=== PATIENT | male | born 1970 | race Caucasian/White ===

== ENCOUNTER 2018-01-24 09:31 | Observation (INO) | payer BC ==
--- NOTE | 2018-01-24 10:05 | ED ---
General Adult HPI - General Chief complaint: Chest Pain Stated complaint: chest pain Time Seen by Provider: 01/24/18 09:39 Source: patient, RN notes reviewed, old records reviewed Mode of arrival: ambulatory Limitations: no limitations - History of Present Illness Initial comments: 47-year-old male presenting with left-sided chest pain. Pain began approximately 5 hours prior to arrival. His been left-sided, dull pressure sensation. Patient did report some pain in his left arm. Patient has no known history of CAD. He does have history of hypertension, he is a former smoker. States that with the pain came some nausea and diaphoresis. Pain is resolved at the time my evaluation. No abdominal pain. No difficulty breathing. No cough or fever. Prior to these symptoms patient was well. - Related Data Home Medications Medication Instructions Recorded Confirmed Aspirin 650 mg PO ONCE PRN 01/24/18 01/24/18 Aspirin EC [Ecotrin Low Dose] 81 mg PO DAILY 01/24/18 01/24/18 Lisinopril 30 mg PO DAILY 01/24/18 01/24/18 Metoprolol Tartrate [Lopressor] 50 mg PO BID 01/24/18 01/24/18 Allergies Allergy/AdvReac Type Severity Reaction Status Date / Time No Known Allergies Allergy Verified 01/24/18 11:21 Review of Systems ROS Statement: Those systems with pertinent positive or pertinent negative responses have been documented in the HPI. ROS Other: All systems not noted in ROS Statement are negative. Past Medical History Past Medical History: Hypertension History of Any Multi-Drug Resistant Organisms: None Reported Past Surgical History: No Surgical Hx Reported Smoking Status: Former smoker Past Alcohol Use History: None Reported Past Drug Use History: None Reported General Exam Limitations: no limitations General appearance: alert, in no apparent distress Head exam: Present: atraumatic, normocephalic Eye exam: Present: normal appearance, PERRL, EOMI ENT exam: Present: normal exam Neck exam: Present: normal inspection. Absent: tenderness, meningismus Respiratory exam: Present: normal lung sounds bilaterally. Absent: respiratory distress, wheezes Cardiovascular Exam: Present: regular rate, normal rhythm, normal heart sounds. Absent: rubs GI/Abdominal exam: Present: soft. Absent: distended, tenderness, guarding Extremities exam: Present: normal inspection, normal capillary refill. Absent: pedal edema, calf tenderness Neurological exam: Present: alert, oriented X3, CN II-XII intact. Absent: motor sensory deficit Psychiatric exam: Present: normal affect, normal mood Skin exam: Present: warm, dry, intact. Absent: cyanosis, diaphoretic Course Vital Signs 01/24/18 09:34 Temperature 97.8 F Pulse Rate 86 Respiratory 18 Rate Blood Pressure 155/77 O2 Sat by Pulse 96 Oximetry EKG Findings - EKG Comments: EKG Findings:: Normal sinus rhythm, ventricular rate of 80, WI interval 160, QRS duration 106, QTC 440, there is T-wave inversion in lead 3, no ST segment elevation or depression Medical Decision Making - Medical Decision Making 47-year-old male presenting with chief complaint of chest pain. Pain was somewhat atypical, however he did have some nausea and diaphoresis. Patient has significant risk factors including previous tobacco use and hypertension. Laboratory studies reveal normal CBC, normal CMP. Initial troponin is negative. Chest x-ray negative for acute disease. Patient will be placed in observation for serial cardiac enzymes and cardiology consultation. - Lab Data Result diagrams: 01/24/18 08:42 01/24/18 08:42 Lab Results 01/24/18 01/24/18 01/24/18 Range/Units 08:42 08:42 08:42 WBC 6.2 (3.8-10.6) k/uL RBC 5.28 (4.30-5.90) m/uL Hgb 15.1 (13.0-17.5) gm/dL Hct 44.6 (39.0-53.0) % MCV 84.4 (80.0-100.0) fL MCH 28.5 (25.0-35.0) pg MCHC 33.8 (31.0-37.0) g/dL RDW 12.8 (11.5-15.5) % Plt Count 223 (150-450) k/uL Neutrophils % 59 % Lymphocytes % 32 % Monocytes % 5 % Eosinophils % 1 % Basophils % 1 % Neutrophils # 3.7 (1.3-7.7) k/uL Lymphocytes # 2.0 (1.0-4.8) k/uL Monocytes # 0.3 (0-1.0) k/uL Eosinophils # 0.1 (0-0.7) k/uL Basophils # 0.0 (0-0.2) k/uL PT (9.0-12.0) sec INR (<1.2) APTT (22.0-30.0) sec Sodium 143 (137-145) mmol/L Potassium 4.3 (3.5-5.1) mmol/L Chloride 106 (98-107) mmol/L Carbon Dioxide 23 (22-30) mmol/L Anion Gap 14 mmol/L BUN 20 (9-20) mg/dL Creatinine 0.87 (0.66-1.25) mg/dL Est GFR (CKD-EPI)AfAm >90 (>60 ml/min/1.73 sqM) Est GFR (CKD-EPI)NonAf >90 (>60 ml/min/1.73 sqM) Glucose 99 (74-99) mg/dL Calcium 9.6 (8.4-10.2) mg/dL Magnesium 2.2 (1.6-2.3) mg/dL Total Bilirubin 0.5 (0.2-1.3) mg/dL AST 25 (17-59) U/L ALT 33 (21-72) U/L Alkaline Phosphatase 51 (38-126) U/L Total Creatine Kinase 152 (55-170) U/L CK-MB (CK-2) 1.1 (0.0-2.4) ng/mL CK-MB (CK-2) Rel Index 0.7 Troponin I <0.012 (0.000-0.034) ng/mL NT-Pro-B Natriuret Pep pg/mL Total Protein 7.2 (6.3-8.2) g/dL Albumin 4.5 (3.5-5.0) g/dL Lipase 115 (23-300) U/L 01/24/18 01/24/18 Range/Units 08:42 08:42 WBC (3.8-10.6) k/uL RBC (4.30-5.90) m/uL Hgb (13.0-17.5) gm/dL Hct (39.0-53.0) % MCV (80.0-100.0) fL MCH (25.0-35.0) pg MCHC (31.0-37.0) g/dL RDW (11.5-15.5) % Plt Count (150-450) k/uL Neutrophils % % Lymphocytes % % Monocytes % % Eosinophils % % Basophils % % Neutrophils # (1.3-7.7) k/uL Lymphocytes # (1.0-4.8) k/uL Monocytes # (0-1.0) k/uL Eosinophils # (0-0.7) k/uL Basophils # (0-0.2) k/uL PT 9.9 (9.0-12.0) sec INR 1.0 (<1.2) APTT 23.6 (22.0-30.0) sec Sodium (137-145) mmol/L Potassium (3.5-5.1) mmol/L Chloride (98-107) mmol/L Carbon Dioxide (22-30) mmol/L Anion Gap mmol/L BUN (9-20) mg/dL Creatinine (0.66-1.25) mg/dL Est GFR (CKD-EPI)AfAm (>60 ml/min/1.73 sqM) Est GFR (CKD-EPI)NonAf (>60 ml/min/1.73 sqM) Glucose (74-99) mg/dL Calcium (8.4-10.2) mg/dL Magnesium (1.6-2.3) mg/dL Total Bilirubin (0.2-1.3) mg/dL AST (17-59) U/L ALT (21-72) U/L Alkaline Phosphatase (38-126) U/L Total Creatine Kinase (55-170) U/L CK-MB (CK-2) (0.0-2.4) ng/mL CK-MB (CK-2) Rel Index Troponin I (0.000-0.034) ng/mL NT-Pro-B Natriuret Pep 179 pg/mL Total Protein (6.3-8.2) g/dL Albumin (3.5-5.0) g/dL Lipase (23-300) U/L Disposition Clinical Impression: Chest pain Disposition: ADMITTED IP TO THIS [facility] Condition: Stable Referrals: Alma Lynn MD [Primary Care Provider] - 1-2 days Decision to Admit Reason: Admit from EC Decision Date: 01/24/18 Decision Time: 12:53
[2018-01-24 10:12] LABS: Basophils % (A) 1 %; Eosinophils # (A) 0.1 k/uL (0-0.7); Eosinophils % (A) 1 %; HCT 44.6 % (39.0-53.0); HGB 15.1 gm/dL (13.0-17.5); Lymphocytes % (A) 32 %; MCH 28.5 pg (25.0-35.0); MCHC 33.8 g/dL (31.0-37.0); MCV 84.4 fL (80.0-100.0); Mean Platelet Volume 7.3; Monocytes # (A) 0.3 k/uL (0-1.0); Monocytes % (A) 5 %; Neutrophils # (A) 3.7 k/uL (1.3-7.7); Neutrophils % (A) 59 %; Platelet Count 223 k/uL (150-450); RBC 5.28 m/uL (4.30-5.90); RDW 12.8 % (11.5-15.5); WBC 6.2 k/uL (3.8-10.6)
--- NOTE | 2018-01-24 10:17 | XR ---
EXAMINATION TYPE: XR chest 2V DATE OF EXAM: 01/24/2018 HISTORY: Chest Pain. REFERENCE: NONE. FINDINGS: The lungs are clear. Pleural space are clear. The heart is not enlarged. IMPRESSION: NO ACUTE INTRATHORACIC ABNORMALITY.
[2018-01-24 10:21] LABS: Partial Thromboplastin Time 23.6 sec (22.0-30.0); Prothrombin Time 9.9 sec (9.0-12.0)
[2018-01-24 10:41] LABS: ALT 33 U/L (21-72); AST 25 U/L (17-59); Albumin 4.5 g/dL (3.5-5.0); Alkaline Phosphatase 51 U/L (38-126); Anion Gap 14 mmol/L; Blood Urea Nitrogen 20 mg/dL (9-20); Calcium 9.6 mg/dL (8.4-10.2); Carbon Dioxide 23 mmol/L (22-30); Chloride 106 mmol/L (98-107); Glucose 99 mg/dL (74-99); Lipase 115 U/L (23-300); Magnesium 2.2 mg/dL (1.6-2.3); Potassium 4.3 mmol/L (3.5-5.1); Sodium 143 mmol/L (137-145); Total Bilirubin 0.5 mg/dL (0.2-1.3); Total Protein 7.2 g/dL (6.3-8.2)
[2018-01-24 10:53] LABS: Creatine Kinase 152 U/L (55-170)
[2018-01-24 11:06] LABS: Creatine Kinase MB 1.1 ng/mL (0.0-2.4); Troponin I <0.012 ng/mL (0.000-0.034)
[2018-01-24] MEDS ORDERED: NALOXONE 0.4 MG/ML 1 ML VIAL IV PRN (12:41)
[2018-01-24] MEDS ORDERED: ONDANSETRON 4 MG/2 ML VIAL IVP PRN (12:41)
[2018-01-24 14:59] VITALS: BMI 34.8
--- NOTE | 2018-01-24 15:47 | P.HPIM ---
History of Present Illness 47-year-old pleasant gentleman with known history of previous coronary artery disease came in with complaints of very dull chest pain nonexertional changes with the chest wall movement. Denied any fever chills nonpleuritic in nature not associated with food not associated with lightheadedness shortness of breath or diaphoresis denied any nausea vomiting. Denied any cough denied any flulike symptoms fever chills low-grade chest pain. EKG showed some nonspecific Q waves in anterior leads, no prior EKG available to compare with. Patient follows up with cardiology as an outpatient had a stress test couple years ago which was within normal limits and a nuclear perfusion imaging 4 years ago which was normal as well. Patient's risk factors include hypertension , former smoker. Denied any premature carotid artery disease but mother had myocardial infarction the past Review of Systems REVIEW OF SYSTEMS: CONSTITUTIONAL: No fever, no malaise, no fatigue. HEENT: No recent visual problems or hearing problems. Denied any sore throat. CARDIOVASCULAR: No orthopnea, PND, no palpitations, no syncope. PULMONARY: No shortness of breath, no cough, no hemoptysis. GASTROINTESTINAL: No diarrhea, no nausea, no vomiting, no abdominal pain. Normoactive bowel sounds. NEUROLOGICAL: No headaches, no weakness, no numbness. HEMATOLOGICAL: Denies any bleeding or petechiae. GENITOURINARY: Denies any burning micturition, frequency, or urgency. MUSCULOSKELETAL/RHEUMATOLOGICAL: Denies any joint pain, swelling, or any muscle pain. ENDOCRINE: Denies any polyuria or polydipsia. The rest of the 14-point review of systems is negative. Past Medical History Past Medical History: Hypertension History of Any Multi-Drug Resistant Organisms: None Reported Past Surgical History: No Surgical Hx Reported Past Anesthesia/Blood Transfusion Reactions: No Reported Reaction Past Psychological History: No Psychological Hx Reported Smoking Status: Former smoker Past Alcohol Use History: None Reported Past Drug Use History: None Reported Medications and Allergies Home Medications Medication Instructions Recorded Confirmed Type Aspirin 650 mg PO ONCE PRN 01/24/18 01/24/18 History Aspirin EC [Ecotrin Low Dose] 81 mg PO HS 01/24/18 01/24/18 History Lisinopril 30 mg PO DAILY 01/24/18 01/24/18 History Metoprolol Tartrate [Lopressor] 50 mg PO BID 01/24/18 01/24/18 History Allergies Allergy/AdvReac Type Severity Reaction Status Date / Time No Known Allergies Allergy Verified 01/24/18 11:21 Physical Exam Vitals: Vital Signs Temp Pulse Pulse Resp BP BP Pulse Ox 01/24/18 13:38 98.2 F 68 16 121/75 97 01/24/18 13:30 98 F 70 18 135/83 98 01/24/18 09:34 97.8 F 86 18 155/77 96 Intake and Output 01/24/18 01/24/18 01/24/18 06:59 14:59 22:59 Other: Voiding Method Toilet Weight 113.398 kg PHYSICAL EXAMINATION: GENERAL: The patient is alert and oriented x3, not in any acute distress. Well developed, well nourished. HEENT: Pupils are round and equally reacting to light. EOMI. No scleral icterus. No conjunctival pallor. Normocephalic, atraumatic. No pharyngeal erythema. No thyromegaly. CARDIOVASCULAR: S1 and S2 present. No murmurs, rubs, or gallops. PULMONARY: Chest is clear to auscultation, no wheezing or crackles. ABDOMEN: Soft, nontender, nondistended, normoactive bowel sounds. No palpable organomegaly. MUSCULOSKELETAL: No joint swelling or deformity. EXTREMITIES: No cyanosis, clubbing, or pedal edema. NEUROLOGICAL: Gross neurological examination did not reveal any focal deficits. SKIN: No rashes. Results CBC & Chem 7: 01/24/18 08:42 01/24/18 08:42 Thrombosis Risk Factor Assmnt - Choose All That Apply Each Factor Represents 1 point: Age 41-60 years, Obesity (BMI >25) Thrombosis Risk Factor Assessment Total Risk Factor Score: 2 Thrombosis Risk Factor Assessment Level: Low Risk Assessment and Plan Plan: -Chest pain: We will rule out acute coronary syndromes it's 2 more sets of troponins appears to be noncardiac in nature musculoskeletal in nature patient may need an outpatient stress test. -Hypertension : Well-controlled blood pressure -remote history of nicotine use
[2018-01-24 16:16] LABS: Creatine Kinase 128 U/L (55-170)
[2018-01-24 16:30] LABS: Creatine Kinase MB 0.8 ng/mL (0.0-2.4); Troponin I <0.012 ng/mL (0.000-0.034)
[2018-01-24] MEDS: METOPROLOL TARTRATE 50 MG TAB PO SCH (19:44)
[2018-01-24] MEDS ORDERED: ASPIRIN 81 MG PO SCH (21:00)
[2018-01-24 22:51] LABS: Creatine Kinase 105 U/L (55-170)
[2018-01-24 23:03] LABS: Creatine Kinase MB 0.8 ng/mL (0.0-2.4); Troponin I <0.012 ng/mL (0.000-0.034)
[2018-01-25] MEDS ORDERED: LISINOPRIL 10 MG TAB PO SCH (09:00)
--- NOTE | 2018-01-25 10:58 | P.CRDCN ---
History of Present Illness Consult date: 01/25/18 Chief complaint: Chest pain History of present illness: This is a pleasant 47-year-old gentleman who sees Dr. VIRGINIA Yu in the office as an outpatient with a past medical history significant for hypertension and significant family history of coronary artery disease presented to the hospital complaining of chest discomfort. He describes atypical chest discomfort. It seems to be musculoskeletal/ pleuritic. It's sharp kind of discomfort in the mid of the chest without any radiation and without any associated symptoms. He stated that the discomfort is precipitated by turning the chest to the right. It seems to be also reproducible. The cardiac workup including EKG and enzymes came in to be unremarkable. I did recommend obtaining a stress test either as an inpatient or as an outpatient and the patient is going to be discharged home and follow-up with Dr. VIRGINIA Yu in the office to have a stress test done as an outpatient. Past Medical History Past Medical History: Hypertension History of Any Multi-Drug Resistant Organisms: None Reported Past Surgical History: No Surgical Hx Reported Past Anesthesia/Blood Transfusion Reactions: No Reported Reaction Past Psychological History: No Psychological Hx Reported Smoking Status: Former smoker Past Alcohol Use History: None Reported Past Drug Use History: None Reported Medications and Allergies Home Medications Medication Instructions Recorded Confirmed Type Aspirin 650 mg PO ONCE PRN 01/24/18 01/24/18 History Aspirin EC [Ecotrin Low Dose] 81 mg PO HS 01/24/18 01/24/18 History Lisinopril 30 mg PO DAILY 01/24/18 01/24/18 History Metoprolol Tartrate [Lopressor] 50 mg PO BID 01/24/18 01/24/18 History Allergies Allergy/AdvReac Type Severity Reaction Status Date / Time No Known Allergies Allergy Verified 01/24/18 11:21 Physical Exam Vitals: Vital Signs Temp Pulse Pulse Resp BP BP Pulse Ox 01/25/18 08:00 98.0 F 71 16 121/73 98 01/25/18 07:42 16 01/25/18 07:36 96 01/25/18 03:58 97.9 F 72 16 119/73 96 01/25/18 03:16 16 01/25/18 00:08 98 F 75 16 103/63 97 01/24/18 23:18 16 01/24/18 20:20 98 F 80 16 123/66 96 01/24/18 19:30 16 01/24/18 16:00 98.8 F 74 16 133/66 96 01/24/18 13:38 98.2 F 68 16 121/75 97 01/24/18 13:30 98 F 70 18 135/83 98 Intake and Output 01/24/18 01/25/18 01/25/18 22:59 06:59 14:59 Other: Voiding Method Toilet Toilet Toilet - Constitutional General appearance: no acute distress - Respiratory Respiratory: bilateral: CTA - Cardiovascular Rhythm: regular Heart sounds: normal: S1, S2 Results 01/24/18 08:42 01/24/18 08:42 Cardiac Enzymes 01/24/18 01/24/18 01/24/18 Range/Units 08:42 15:35 21:50 CK-MB (CK-2) 1.1 0.8 0.8 (0.0-2.4) ng/mL Troponin I <0.012 <0.012 <0.012 (0.000-0.034) ng/mL Current Medications Generic Name Dose Route Start Last Admin Trade Name Freq PRN Reason Stop Dose Admin Aspirin 81 mg 01/24/18 21:00 01/24/18 19:44 Aspirin PO 81 mg HS TERESE Administration Lisinopril 30 mg 01/25/18 09:00 Zestril PO DAILY TERESE Metoprolol Tartrate 50 mg 01/24/18 21:00 01/24/18 19:44 Lopressor PO 50 mg BID TERESE Administration Naloxone HCl 0.2 mg 01/24/18 12:41 Narcan IV Q2M PRN Opioid Reversal Ondansetron HCl 4 mg 01/24/18 12:41 Zofran IVP Q8HR PRN Nausea And Vomiting Intake and Output 01/24/18 01/25/18 01/25/18 22:59 06:59 14:59 Other: Voiding Method Toilet Toilet Toilet 01/24/18 08:42 01/24/18 08:42 Assessment and Plan Assessment: Assessment #1 atypical chest discomfort. #2 hypertension Plan #1The patient was ruled out for acute chronic syndrome #2 he can be discharged home and have a stress test done as an outpatient.
[2018-01-25] MEDS: METOPROLOL TARTRATE 50 MG TAB PO SCH (11:41)
[2018-01-25 12:39] VITALS: BP 147/87; PULSE 77; RESP 18; TEMP 98.8
--- NOTE | 2018-01-25 16:18 | P.DS ---
Providers Date of admission: 01/24/18 12:41 Attending physician: Chris Sandoval Consults: 01/24/18 12:43 Consult Physician Routine Consulting Provider: Rafael Fonseca Consult Reason/Comments: CP Do you want consulting provider notified?: Yes Primary care physician: Alma Lynn Hospital Course: Patient was admitted for chest pain rule out acute coronary syndromes patient has atypical chest pains probably musculoskeletal in nature patient will be discharged today to follow with his civil attorney as an outpatient and patient will be scheduled for outpatient stress test from there. Patient is otherwise clinically doing well. Patient was asked to take [id number] Tylenol if she continues to have a pain patient can return to work to couple days. Patient Condition at Discharge: Stable Plan - Discharge Summary Discharge Rx Participant: No New Discharge Prescriptions: No Action Metoprolol Tartrate [Lopressor] 50 mg PO BID Lisinopril 30 mg PO DAILY Aspirin 650 mg PO ONCE PRN PRN Reason: Chest Pain Aspirin EC [Ecotrin Low Dose] 81 mg PO HS Discharge Medication List Aspirin 650 mg PO ONCE PRN 01/24/18 [History] Aspirin EC [Ecotrin Low Dose] 81 mg PO HS 01/24/18 [History] Lisinopril 30 mg PO DAILY 01/24/18 [History] Metoprolol Tartrate [Lopressor] 50 mg PO BID 01/24/18 [History] Follow up Appointment(s)/Referral(s): Bridgette Yu MD [Family Provider] - 1 Week Alma Lynn MD [Primary Care Provider] - 3 Days Discharge Disposition: HOME SELF-CARE
== END 2018-01-25 16:25 | disposition home or self-care (01) ==
LOC: EC 09:31 → 3OBS 12:41 → 3SUR 01-25 09:37
PROVIDERS: ADMIT Internal Medicine; ATTEND Internal Medicine
DX: R07.89 Other chest pain (principal); I10 Essential (primary) hypertension; M79.602 Pain in left arm; R11.0 Nausea; R61 Generalized hyperhidrosis; I25.10 Atherosclerotic heart disease of native coronary artery without angina pectoris; Z87.891 Personal history of nicotine dependence; Z79.82 Long term (current) use of aspirin; Z79.899 Other long term (current) drug therapy; E66.9 Obesity, unspecified; Z68.34 Body mass index [BMI] 34.0-34.9, adult
CPT/HCPCS: 36415; 71046; 80053; 82550; 82553; 83690; 83735; 83880; 84484; 85025; 85610; 85730; 93005; 94760; 99285

== ENCOUNTER 2021-05-23 19:26 | Emergency (ER) | payer BC ==
--- NOTE | 2021-05-23 19:33 | ED ---
General Adult HPI - General Stated complaint: Altered mental status Time Seen by Provider: 05/23/21 19:28 - History of Present Illness Initial comments: Dictation was produced using [employer] dictation software. please excuse any grammatical, word or spelling errors. Chief Complaint: 50-year-old male presents to the emergency department for altered mental status. History of Present Illness: Patient is a 50-year-old male he is unable to provide history of present illness. Brought in by EMS for altered mental status. EMS provides HPI. Approximately one hour ago patient was found to be altered. He was outside doing yardwork when he came to the bowels and found him to be altered. EMS was called. EMS reports the patient has been combative and uncooperative. Patient has not have any history of stroke. He has history of hypertension. He does not have any history of mental status issues. The ROS documented in this emergency department record has been reviewed and confirmed by me. Those systems with pertinent positive or negative responses have been documented in the HPI. All other systems are other negative and/or noncontributory. PHYSICAL EXAM: General Impression: Alert and oriented one out of 3, uncooperative, eyes closed HEENT: Normocephalic atraumatic, extra-ocular movements intact, pupils equal and reactive to light bilaterally, mucous membranes moist. Cardiovascular: Heart regular rate and rhythm Chest: , no retractions, no tachypnea Abdomen: abdomen soft, non-tender, non-distended, no organomegaly Musculoskeletal: Pulses present and equal in all extremities, no peripheral edema Motor: no focal deficits noted Neurological: Does not follow commands, perhaps aphasic moved all extremities grossly moves all extremities to noxious stimuli Skin: Intact with no visualized rashes ED course: 50-year-old male presents to the emergency department for ultimate mental status. Vital signs upon arrival are within acceptable limits. Point care blood glucose is normal. Code stroke page. According to EMS reports he did report from patient's last known normal was 1 hour prior to arrival. P atient given an NIH score of 3. EKG interpretation: Ventricular rate 98, normal sinus rhythm,. 166, QRS 12, QTC 480. No DE prolongation, no QTC prolongation, no ST or T-wave changes noted. Overall, this EKG is unremarkable Computed tomography scan of the brain shows subarachnoid bleed likely arising from an aneurysm from the [place]. There is evidence of obstructive hydrocephalus and hemorrhage in the fourth ventricle. Small amount of subarachnoid hemorrhage and occipital horns. Case was discussed with stroke neurologist Dr. Salas who requested CT angios be ordered to be transferred to [facility] for further intervention. He also requested patient be adm inistered mannitol. Case discussed with [facility] ER doctor, Dr. Johnson who is willing to accept patient case for ER to ER transfer. Patient was taking airway. No clear indication for intubation at this time. He will be going lights and sirens to [facility]. - Related Data Home Medications Medication Instructions Recorded Confirmed Aspirin EC [Ecotrin Low Dose] 81 mg PO HS 01/24/18 05/23/21 Metoprolol Tartrate [Lopressor] 50 mg PO BID 01/24/18 05/23/21 lisinopriL 30 mg PO DAILY 01/24/18 05/23/21 Allergies Allergy/AdvReac Type Severity Reaction Status Date / Time No Known Allergies Allergy Verified 05/23/21 19:38 Review of Systems ROS Statement: Those systems with pertinent positive or pertinent negative responses have been documented in the HPI. ROS Other: All systems not noted in ROS Statement are negative. Past Medical History Past Medical History: Hypertension History of Any Multi-Drug Resistant Organisms: None Reported Past Surgical History: No Surgical Hx Reported Past Anesthesia/Blood Transfusion Reactions: No Reported Reaction Past Psychological History: No Psychological Hx Reported Past Alcohol Use History: None Reported Past Drug Use History: None Reported Course Vital Signs 05/23/21 05/23/21 05/23/21 20:23 20:30 20:46 Pulse Rate 97 92 88 Respiratory 15 20 20 Rate Blood Pressure 147/84 155/82 149/81 O2 Sat by Pulse 100 98 98 Oximetry Medical Decision Making - Lab Data Result diagrams: 05/23/21 20:21 05/23/21 20:21 Lab Results 05/23/21 05/23/21 05/23/21 Range/Units 19:33 20:21 20:21 WBC 11.2 H (3.8-10.6) k/uL RBC 5.17 (4.30-5.90) m/uL Hgb 15.4 (13.0-17.5) gm/dL Hct 45.7 (39.0-53.0) % MCV 88.3 (80.0-100.0) fL MCH 29.8 (25.0-35.0) pg MCHC 33.7 (31.0-37.0) g/dL RDW 12.6 (11.5-15.5) % Plt Count 240 (150-450) k/uL MPV 8.0 Neutrophils % 83 % Lymphocytes % 12 % Monocytes % 3 % Eosinophils % 0 % Basophils % 1 % Neutrophils # 9.3 H (1.3-7.7) k/uL Lymphocytes # 1.4 (1.0-4.8) k/uL Monocytes # 0.4 (0-1.0) k/uL Eosinophils # 0.0 (0-0.7) k/uL Basophils # 0.1 (0-0.2) k/uL PT 10.1 (9.0-12.0) sec INR 0.9 (<1.2) APTT 20.9 L (22.0-30.0) sec Sodium (137-145) mmol/L Potassium (3.5-5.1) mmol/L Chloride (98-107) mmol/L Carbon Dioxide (22-30) mmol/L Anion Gap mmol/L BUN (9-20) mg/dL Creatinine (0.66-1.25) mg/dL Est GFR (CKD-EPI)AfAm (>60 ml/min/1.73 sqM) Est GFR (CKD-EPI)NonAf (>60 ml/min/1.73 sqM) Glucose (74-99) mg/dL POC Glucose (mg/dL) 130 H (75-99) mg/dL POC Glu Spinner Fixer ID Kye Griffith Calcium (8.4-10.2) mg/dL Total Bilirubin (0.2-1.3) mg/dL AST (17-59) U/L ALT (4-49) U/L Alkaline Phosphatase (38-126) U/L Troponin I (0.000-0.034) ng/mL Total Protein (6.3-8.2) g/dL Albumin (3.5-5.0) g/dL 05/23/21 05/23/21 Range/Units 20:21 20:21 WBC (3.8-10.6) k/uL RBC (4.30-5.90) m/uL Hgb (13.0-17.5) gm/dL Hct (39.0-53.0) % MCV (80.0-100.0) fL MCH (25.0-35.0) pg MCHC (31.0-37.0) g/dL RDW (11.5-15.5) % Plt Count (150-450) k/uL MPV Neutrophils % % Lymphocytes % % Monocytes % % Eosinophils % % Basophils % % Neutrophils # (1.3-7.7) k/uL Lymphocytes # (1.0-4.8) k/uL Monocytes # (0-1.0) k/uL Eosinophils # (0-0.7) k/uL Basophils # (0-0.2) k/uL PT (9.0-12.0) sec INR (<1.2) APTT (22.0-30.0) sec Sodium 135 L (137-145) mmol/L Potassium 4.6 (3.5-5.1) mmol/L Chloride 102 (98-107) mmol/L Carbon Dioxide 22 (22-30) mmol/L Anion Gap 11 mmol/L BUN 21 H (9-20) mg/dL Creatinine 0.81 (0.66-1.25) mg/dL Est GFR (CKD-EPI)AfAm >90 (>60 ml/min/1.73 sqM) Est GFR (CKD-EPI)NonAf >90 (>60 ml/min/1.73 sqM) Glucose 138 H (74-99) mg/dL POC Glucose (mg/dL) (75-99) mg/dL POC Glu Spinner Fixer ID Calcium 9.2 (8.4-10.2) mg/dL Total Bilirubin 0.4 (0.2-1.3) mg/dL AST 35 (17-59) U/L ALT 26 (4-49) U/L Alkaline Phosphatase 45 (38-126) U/L Troponin I <0.012 (0.000-0.034) ng/mL Total Protein 7.1 (6.3-8.2) g/dL Albumin 4.6 (3.5-5.0) g/dL Critical Care Time Critical Care Time: Yes Total Critical Care Time: 33 Disposition 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 Specs Out of Hospital Transfer - Requested Specifics: Other Emergency Center ([facility])
[2021-05-23 19:34] LABS: Glucose,Whole Blood 130 mg/dL (75-99)
[2021-05-23] MEDS ORDERED: LORazepam 2 MG/ML INJ IM STA (19:49)
--- NOTE | 2021-05-23 20:11 | CT ---
EXAMINATION TYPE: CT brain wo con for TPA DATE OF EXAM: 05/23/2021 COMPARISON: None HISTORY: Weakness CT DLP: mGycm Automated exposure control for dose reduction was used. Images of the brain obtained without contrast. There is large amount of subarachnoid acute hemorrhage around the brainstem and sella turcica. There is also hemorrhage in the right sylvian fissure. There is no midline shift. There is some enlargement of the ventricles. There is small amount of hemorrhage in the fourth ventricle. Calvarium is intact. IMPRESSION: Large acute subarachnoid hemorrhage which could relate to ruptured aneurysm at the [place] of [place]. There is evidence of obstructive hydrocephalus with hemorrhage in the fourth ventricle. Small amount of subarachnoid hemorrhage in the occipital horns of the lateral ventricles. This exam was discussed with Dr. Metz 8:15 PM.
[2021-05-23] MEDS ORDERED: SALINE IV ONE (20:23)
[2021-05-23] MEDS ORDERED: MANNITOL 20% IV ONE ×2 (20:23→20:30)
[2021-05-23 20:27] LABS: Basophils # (A) 0.1 k/uL (0-0.2); Basophils % (A) 1 %; Eosinophils % (A) 0 %; HCT 45.7 % (39.0-53.0); HGB 15.4 gm/dL (13.0-17.5); Lymphocytes # (A) 1.4 k/uL (1.0-4.8); Lymphocytes % (A) 12 %; MCH 29.8 pg (25.0-35.0); MCHC 33.7 g/dL (31.0-37.0); MCV 88.3 fL (80.0-100.0); Monocytes # (A) 0.4 k/uL (0-1.0); Monocytes % (A) 3 %; Neutrophils # (A) 9.3 k/uL (1.3-7.7); Neutrophils % (A) 83 %; Platelet Count 240 k/uL (150-450); RBC 5.17 m/uL (4.30-5.90); RDW 12.6 % (11.5-15.5); WBC 11.2 k/uL (3.8-10.6)
[2021-05-23] MEDS ORDERED: niCARdipine 20 MG in SODIUM CHLORIDE 0.9% 192 ML IV SCH (20:30)
[2021-05-23 20:44] LABS: ALT 26 U/L (4-49); AST 35 U/L (17-59); African American GFR (CKD) >90 (>60 ml/min/1.73 sqM); Albumin 4.6 g/dL (3.5-5.0); Alkaline Phosphatase 45 U/L (38-126); Anion Gap 11 mmol/L; Blood Urea Nitrogen 21 mg/dL (9-20); Calcium 9.2 mg/dL (8.4-10.2); Carbon Dioxide 22 mmol/L (22-30); Chloride 102 mmol/L (98-107); Glucose 138 mg/dL (74-99); Non-African American GFR(CKD) >90 (>60 ml/min/1.73 sqM); Potassium 4.6 mmol/L (3.5-5.1); Sodium 135 mmol/L (137-145); Total Bilirubin 0.4 mg/dL (0.2-1.3); Total Protein 7.1 g/dL (6.3-8.2)
[2021-05-23 20:47] VITALS: PULSE 88
[2021-05-23 20:49] LABS: INR 0.9 (<1.2); Prothrombin Time 10.1 sec (9.0-12.0)
[2021-05-23 20:52] LABS: Partial Thromboplastin Time 20.9 sec (22.0-30.0)
--- NOTE | 2021-05-23 20:57 | CT ---
EXAMINATION TYPE: CT angio head neck DATE OF EXAM: 05/23/2021 COMPARISON: None HISTORY: Subarachnoid hemorrhage CT DLP: mGycm Automated exposure control for dose reduction was used. CONTRAST: There are 3-D post processed images. The contrast was Isovue 65 mL. There is large amount of acute subarachnoid hemorrhage around the sella turcica and [place] and smaller amount of hemorrhage in the occipital horns of the lateral ventricles. There is small acu te subarachnoid hemorrhage in the fourth ventricle. There is suboptimal contrast density in the intra cranial arteries. There is arterial flow in the vertebrobasilar artery system. Right vertebral artery is smaller than the left. Right vertebral artery not well evaluated. Basilar artery appears intact. Unfortunately the contrast density is insufficient for evaluation of the [place] because of the pre-existing acute hemorrhage in the subarachnoid space. The exam shows arterial flow in the ante rior middle and posterior cerebral arteries. There is no obvious aneurysm. There is normal enhancement of the venous sinuses. IMPRESSION: Suboptimal exam. No obvious [place] aneurysm. [place] obscured due to large extent due to the subarachnoid hemorrhage. Obstructive type hydrocephalus with intraventricular acute subarachnoid hemorrhage.
[2021-05-23 21:15] VITALS: BP 146/79; RESP 24
[2021-05-23 21:29] VITALS: TEMP 97.7
== END 2021-05-23 21:20 | disposition other institution (70) ==
LOC: EC 19:26
DX: I60.7 Nontraumatic subarachnoid hemorrhage from unspecified intracranial artery (principal); I10 Essential (primary) hypertension; Z79.899 Other long term (current) drug therapy
CPT/HCPCS: 99291; 96374; 96372; 36415; 93005; 80053; 84484; 85025; 85610; 85730; 70496; 70450; 70498; J2060; Q9967

== ENCOUNTER → 2021-07-30 | Outpatient (CLI) | payer BC ==
--- NOTE | 2021-07-30 08:28 | CT ---
EXAMINATION TYPE: CT brain wo con DATE OF EXAM: 07/30/2021 COMPARISON: 05/23/2021 INDICATION: Nontraumatic subarachnoid hemorrhage DLP: 1126.5 mGycm, Automated exposure control for dose reduction was used. CONTRAST: None CT of the brain is performed utilizing 3 mm thick sections through the posterior fossa and 3 mm thick sections through the remaining calvarium. Study is performed within 24 hours of [facility] to the [facility]. No abnormal hyperdensity is present to suggest an acute intracranial hemorrhage. Previous subarachno id hemorrhage not identified. No acute or chronic hemorrhage evident. No mass lesion is evident. No acute infarcts are evident. Ventricles and sulci are appropriate for the patient age. No hydrocephalus is evident. Lateral ventr icles are diminished in prominence over the interval. Paranasal sinuses and mastoid air cells within the [id number] are clear. IMPRESSIONS: 1. No acute intracranial process.
== END | disposition home or self-care (01) ==
LOC: RADCTMAIN 06:36
PROVIDERS: ATTEND Neurological Surgery
DX: I60.9 Nontraumatic subarachnoid hemorrhage, unspecified (principal)
CPT/HCPCS: 70450

== ENCOUNTER → 2023-09-16 | Outpatient (CLI) | payer BC ==
--- NOTE | 2023-09-16 13:42 | XR ---
EXAMINATION TYPE: XR cervical spine comp DATE OF EXAM: 09/16/2023 CLINICAL HISTORY: pain COMPARISON: NONE TECHNIQUE: Frontal, lateral, oblique, swimmers, and open mouth view of the cervical spine are obtaine d. FINDINGS: The cervical spine is visualized in its entirety from C1 thru the top of T1 level. It is s atisfactory in alignment without evidence of acute fracture or dislocation. The pre-vertebral soft t issue appears within normal limits. Mild degenerative narrowing C5-6. The C1-C2 articulation is unrem arkable on the open mouth view. The oblique images are within normal limits. IMPRESSION: No acute fracture or dislocation is seen in the cervical spine.ICD 10 NO FRACTURE, INITI AL EVALUATION
== END | disposition home or self-care (01) ==
LOC: RADXRYALE 13:07
PROVIDERS: ATTEND Internal Medicine
DX: M54.2 Cervicalgia (principal)
CPT/HCPCS: 72050